=== PATIENT | female | born 1975 | race Caucasian/White ===

== ENCOUNTER 2017-04-21 08:00 | Outpatient (CLI) | payer OTHER ==
[2017-04-21 16:45] LABS: BASOPHILS # (AUTO) 0.1 10^3/uL (0.0-0.1); BASOPHILS % (AUTO) 0.5 %; EOSINOPHILS # (AUTO) 0.2 10^3/uL (0.0-0.7); EOSINOPHILS % (AUTO) 1.7 %; HCT - HEMATOCRIT 38.4 % (37.0-47.0); HGB - HEMOGLOBIN 12.6 g/dL (12.0-16.0); LYMPHOCYTES # (AUTO) 3.1 10^3/uL (1.5-3.5); LYMPHOCYTES % (AUTO) 21.2 %; MEAN CORPUSCULAR HEMOGLOBIN 26.6 pg (27.0-31.0); MEAN CORPUSCULAR HGB CONC 32.9 g/dL (32.0-36.0); MEAN PLATELET VOLUME 7.9 fL (7.9-10.8); MONOCYTES # (AUTO) 1.1 10^3/uL (0.0-1.0); MONOCYTES % (AUTO) 7.3 %; NEUTROPHILS # (AUTO) 10.3 10^3/uL (1.5-6.6); NEUTROPHILS % (AUTO) 69.3 %; NUCLEATED RED BLOOD CELLS AUTO 0.1 /100WBC; RED BLOOD COUNT 4.74 10^6/uL (4.20-5.40); RED CELL DISTRIBUTION WIDTH 15.3 % (12.0-15.0); UNCORRECTED WHITE BLOOD COUNT 14.8 x10^3/uL; WHITE BLOOD COUNT 14.8 x10^3/uL (4.8-10.8)
[2017-04-21 16:52] LABS: CALCIUM 9.2 mg/dL (8.5-10.3); CREATININE 0.8 mg/dL (0.4-1.0); POTASSIUM 3.5 mmol/L (3.5-5.0)
== END 2017-04-21 08:01 | disposition home or self-care (01) ==
LOC: LAB.R 08:00
PROVIDERS: ATTEND Nurse Practitioner Primary Care
DX: R07.81 Pleurodynia (principal); R05 Cough
CPT/HCPCS: 80048; 85025

== ENCOUNTER 2017-04-21 16:35 | Outpatient (CLI) | payer OTHER ==
--- NOTE | 2017-04-21 17:15 | XRAY Preliminary Report ---
Exam: XR CHEST 2 VIEW PA/LAT IMPRESSION: Left basilar atelectasis versus infiltrate. [facility] SITE ID: [id number]
--- NOTE | 2017-04-21 17:17 | XRAY Report ---
EXAM: CHEST RADIOGRAPHY EXAM DATE: 04/21/2017 05:03 PM. CLINICAL HISTORY: PLEURITIC CHEST Pain, cough. COMPARISON: None. TECHNIQUE: 2 views. FINDINGS: Lungs/Pleura: Atelectasis versus infiltrate in left posterior base. No consolidation, effusion, or pn eumothorax. Mediastinum: Heart and mediastinal contours are unremarkable. Upper lobe vessels not distended. Other: None. IMPRESSION: Left basilar atelectasis versus infiltrate. [facility] Referring Provider Line: [phone] SITE ID: [id number]
== END 2017-04-21 16:36 | disposition home or self-care (01) ==
LOC: DI 16:35
PROVIDERS: ATTEND Nurse Practitioner Primary Care
DX: R91.8 Other nonspecific abnormal finding of lung field (principal)
CPT/HCPCS: 71020; 80048; 85025

== ENCOUNTER 2019-07-05 11:41 | Emergency (ER) | payer BC, OTHER ==
[2019-07-05 11:50] VITALS: BP 136/81
--- NOTE | 2019-07-05 12:39 | ED Physician Documentation ---
PD HPI SKIN - Stated complaint Stated Complaint: SORE ON BUTTOCK - Chief complaint Chief Complaint: Wound - History obtained from History obtained from: Patient - History of Present Illness Timing - onset: How many days ago (4-5) Timing - duration: Days (4-5 days of redness and soreness upper posterior thigh. Was Rx Bactrim BID and had been on it for 2 days without improvement. Feeling worsening swelling and pain locally, though surrounding redness is improved some.) Timing - details: Gradual onset, Still present Location: RLE (upper posterior thigh just below buttock.) Quality / character: Painful, Discolored (red), Swelling. No: Draining Improved by: No: Antibiotics (bactrim for 2 days without improvement) Associated symptoms: No: Fever, Myalgias, N/V/D Similar symptoms before: Has not had sx before Review of Systems Constitutional: denies: Fever, Chills Throat: denies: Sore throat Respiratory: denies: Cough GI: denies: Nausea, Vomiting PD PAST MEDICAL HISTORY - Past Medical History Past Medical History: No - Past Surgical History Past Surgical History: Yes /[employer]: section HEENT: Tonsil/Adenoidectomy - Present Medications Home Medications: Ambulatory Orders Medication Instructions Recorded Confirmed Chlorhexidine Gluconate [Hibiclens] 15 ml TP DAILY #236 ml 07/05/19 Mupirocin 1 applic TP TID #15 g 07/05/19 - Allergies Allergies/Adverse Reactions: Allergies Allergy/AdvReac Type Severity Reaction Status Date / Time No Known Drug Allergies Allergy Verified 07/05/19 11:50 - Social History Does the pt smoke?: No Smoking Status: Former smoker Does the pt drink ETOH?: Yes ETOH Use: Wine Does the pt have substance abuse?: No - Immunizations Immunizations are current?: Yes - POLST Patient has POLST: No PD ED PE NORMAL - Vitals Vital signs reviewed: Yes - General General: Alert and oriented X 3, No acute distress, Well developed/nourished - Derm Derm: Normal color, Warm and dry - Extremities Extremities: Other (right upper posteromedial thigh with localized area of fluctuance/redness/swelling/tender. Bedside U/S confirmed fluid about 2 cm diamater.) - Neuro Neuro: Alert and oriented X 3, No motor deficit, No sensory deficit, Normal speech Results - Vitals Vitals: Vital Signs - 24 hr 07/05/19 11:46 Temperature 37.3 C Heart Rate 85 Respiratory 17 Rate Blood Pressure 136/81 H O2 Saturation 100 Oxygen O2 Source Room air - Labs Labs: Microbiology 07/05/19 13:54 Wound Culture - Preliminary Thigh - Right Procedures - Abscess I&D (location) right upper medial/posterior thigh Preparation: Confirmed with ultrasound, Lidocaine 1%, With epi Incision: Incised with scalpel, Purulent drainage, Irrigated, Culture obtained. 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 ), d/w patient Departure - Departure Disposition: 01 Home, Self Care Clinical Impression: Abscess of right thigh Condition: Stable Record reviewed to determine appropriate education?: Yes Instructions: ED Abscess IandD Prescriptions: Chlorhexidine Gluconate [Hibiclens] 15 ml TP DAILY #236 ml Mupirocin 1 applic TP TID #15 g Comments: Continue current antibiotics. Warm moist soaks or compresses to the infection area to promote drainage. Wet to dry or dry dressing for the first couple of days and then he can start with ointment and bandage once its looking better. Use mupirocin antibiotic ointment a small amount to the nailbeds and nostrils twice daily. Start using at the infection site after couple of days as well once the drainage has stopped. Chlorhexidine antiseptic whole-body wash when you are taking your shower daily for the next week and then once or twice weekly after that. Recheck if not improving well over the next few days. Off work for the next 2 days to help reduce the chance of spread of infection. Forms: Activity restrictions Discharge Date/Time: 07/05/19 14:10
== END 2019-07-05 14:10 | disposition home or self-care (01) ==
LOC: ED 11:41
DX: L02.415 Cutaneous abscess of right lower limb (principal); Z87.891 Personal history of nicotine dependence
CPT/HCPCS: 10060; 87070; 87205

== ENCOUNTER 2020-03-14 09:20 | Outpatient (CLI) | payer BC ==
[2020-03-14 09:28] LABS: BASOPHILS # (AUTO) 0.1 10^3/uL (0.0-0.1); BASOPHILS % (AUTO) 0.7 %; EOSINOPHILS # (AUTO) 0.2 10^3/uL (0.0-0.7); EOSINOPHILS % (AUTO) 2.8 %; HGB - HEMOGLOBIN 10.4 g/dL (12.0-16.0); LYMPHOCYTES # (AUTO) 2.6 10^3/uL (1.5-3.5); LYMPHOCYTES % (AUTO) 32.3 %; MEAN CORPUSCULAR HEMOGLOBIN 22.7 pg (27.0-31.0); MEAN CORPUSCULAR HGB CONC 30.3 g/dL (32.0-36.0); MEAN CORPUSCULAR VOLUME 74.9 fL (81.0-99.0); MEAN PLATELET VOLUME 9.2 fL (7.9-10.8); MONOCYTES # (AUTO) 1.1 10^3/uL (0.0-1.0); NEUTROPHILS # (AUTO) 4.1 10^3/uL (1.5-6.6); NEUTROPHILS % (AUTO) 50.8 %; PLT - PLATELET COUNT 369 10^3/uL (130-450); RED BLOOD COUNT 4.58 10^6/uL (4.20-5.40); RED CELL DISTRIBUTION WIDTH 17.3 % (12.0-15.0); WHITE BLOOD COUNT 8.1 x10^3/uL (4.8-10.8)
[2020-03-14 09:46] LABS: ALBUMIN 4.3 g/dL (3.2-5.5); ALKALINE PHOSPHATASE 78 IU/L (42-121); ALT ALANINE AMINOTRANSFERASE 179 IU/L (10-60); AST ASPARTATE AMINOTRANSFERASE 125 IU/L (10-42); BILIRUBIN,TOTAL 0.4 mg/dL (0.2-1.0); BUN - BLOOD UREA NITROGEN 9 mg/dL (6-20); CALCIUM 9.1 mg/dL (8.5-10.3); CARBON DIOXIDE - CO2 25 mmol/L (21-32); CHLORIDE 102 mmol/L (101-111); CHOL/HDL RATIO 3.3 (<4.4); CHOLESTEROL 165 mg/dL; CREATININE 0.7 mg/dL (0.4-1.0); GLUCOSE 103 mg/dL (70-100); HDL CHOLESTEROL 50 mg/dL; LDL CHOLESTEROL,CALCULATED 92 mg/dL; LDL/HDL RATIO 1.8 (<4.4); SODIUM 134 mmol/L (135-145); TOTAL PROTEIN 8.5 g/dL (6.7-8.2); VLDL CHOLESTEROL 23 mg/dL
[2020-03-14 09:59] LABS: THYROID STIMULATING HORMONE 2.27 uIU/mL (0.34-5.60)
[2020-03-14 10:00] LABS: FREE T3 3.52 pg/mL (2.5-3.9)
[2020-03-14 10:01] LABS: FREE T4 (FREE THYROXINE) 0.81 ng/dL (0.58-1.64)
== END 2020-03-14 09:21 | disposition home or self-care (01) ==
LOC: LAB 09:20
PROVIDERS: ATTEND Nurse Practitioner
DX: R53.83 Other fatigue (principal); Z13.228 Encounter for screening for other metabolic disorders; Z13.220 Encounter for screening for lipoid disorders; E06.3 Autoimmune thyroiditis
CPT/HCPCS: 36415; 80053; 80061; 83721; 84439; 84443; 84481; 85025

== ENCOUNTER 2020-03-19 12:32 | Outpatient (CLI) | payer BC ==
[2020-03-19 12:45] LABS: BASOPHILS # (AUTO) 0.1 10^3/uL (0.0-0.1); BASOPHILS % (AUTO) 0.7 %; EOSINOPHILS # (AUTO) 0.2 10^3/uL (0.0-0.7); HGB - HEMOGLOBIN 10.6 g/dL (12.0-16.0); LYMPHOCYTES % (AUTO) 35.2 %; MEAN CORPUSCULAR HEMOGLOBIN 22.4 pg (27.0-31.0); MEAN CORPUSCULAR VOLUME 74.5 fL (81.0-99.0); MEAN PLATELET VOLUME 9.3 fL (7.9-10.8); MONOCYTES # (AUTO) 0.7 10^3/uL (0.0-1.0); MONOCYTES % (AUTO) 7.8 %; NEUTROPHILS # (AUTO) 4.5 10^3/uL (1.5-6.6); NEUTROPHILS % (AUTO) 53.9 %; PLT - PLATELET COUNT 341 10^3/uL (130-450); RED BLOOD COUNT 4.74 10^6/uL (4.20-5.40); WHITE BLOOD COUNT 8.4 x10^3/uL (4.8-10.8)
[2020-03-19 13:05] LABS: % IRON SATURATION 7 % (20-50); IRON 36 ug/dL (28-170); TOTAL IRON BINDING CAPACITY 526 ug/dL (250-450); TRANSFERRIN 376 mg/dL (192-382)
[2020-03-20 12:03] LABS: HEPATITIS C ANTIBODY NON-REACTIVE (NON-REACTIVE)
[2020-03-20 13:02] LABS: HIV AG/AB 4TH GEN NON-REACTIVE (NON-REACTIVE)
== END 2020-03-19 12:33 | disposition home or self-care (01) ==
LOC: LAB 12:32
PROVIDERS: ATTEND Nurse Practitioner
DX: D64.9 Anemia, unspecified (principal); R74.8 Abnormal levels of other serum enzymes; R53.83 Other fatigue
CPT/HCPCS: 36415; 82728; 83540; 84466; 85025; 86317; 86704; 86709; 86803; 87389

== ENCOUNTER 2020-03-25 12:51 | Outpatient (CLI) | payer BC | END 2020-03-25 12:52 | disposition home or self-care (01) | LOC: LAB 12:51 | PROVIDERS: ATTEND Surgery | DX: R53.83 Other fatigue (principal); D64.9 Anemia, unspecified; R74.8 Abnormal levels of other serum enzymes; Z20.828 Contact with and (suspected) exposure to other viral communicable diseases | CPT/HCPCS: 36415; 86308; 86769 ==

== ENCOUNTER 2020-04-08 08:00 | Outpatient (CLI) | payer BC ==
[2020-04-08 11:49] LABS: H. PYLORIS ANTIGEN STL NEGATIVE (Negative)
== END 2020-04-08 23:59 | disposition home or self-care (01) ==
LOC: LAB.R 08:00
PROVIDERS: ATTEND Surgery
DX: D64.9 Anemia, unspecified (principal); R74.8 Abnormal levels of other serum enzymes; R53.83 Other fatigue
CPT/HCPCS: 87338

== ENCOUNTER 2020-04-14 08:37 | Outpatient (CLI) | payer BC ==
--- NOTE | 2020-04-14 11:37 | Ultrasound Report ---
PROCEDURE: Abdomen Limited INDICATIONS: ELEVATED LIVER ENZYMES TECHNIQUE: Real-time scanning was performed of the abdominal and retroperitoneal organs, with image documentatio n. COMPARISON: None. FINDINGS: Liver: The liver measures 15.9 cm in length and demonstrates increased echogenicity. Gallbladder: The gallbladder wall measures 3 mm in diameter. A 6 mm diameter polyp is present along t he gallbladder wall. No pericholecystic fluid or sonographic Ahn sign. Biliary ducts: Intrahepatic bile ducts are non-dilated. Extrahepatic bile duct caliber measures 2 m m. Normal is 6-7 mm or less in diameter, or 10 mm or less post-cholecystectomy. Pancreas: Visualized portions of the pancreas are sonographically normal. The tail the pancreas is only partially characterized. Kidneys: Kidneys are normal in size and echotexture. Right kidney measures 12.0 cm long. No hydron ephrosis or nephrolithiasis. No solid masses. IVC: Intrahepatic inferior vena cava is patent. Miscellaneous: No free abdominal fluid. IMPRESSION: 1. 6 mm gallbladder polyp. Annual sonographic surveillance recommended as there is increased risk of malignant transformation. No cholelithiasis or findings to suggest choledocholithiasis or acute dwight cystitis. 2. Hepatic steatosis. Reviewed by: Maida Gagnon MD on 04/14/2020 11:35 AM PDT Approved by: Maida Gagnon MD on 04/14/2020 11:35 AM PDT Station ID: [id number]
== END 2020-04-14 08:38 | disposition home or self-care (01) ==
LOC: DI 08:37
PROVIDERS: ATTEND Nurse Practitioner
DX: K82.4 Cholesterolosis of gallbladder (principal); K76.0 Fatty (change of) liver, not elsewhere classified
CPT/HCPCS: 76705

== ENCOUNTER 2020-05-02 13:03 | Outpatient (CLI) | payer BC ==
--- NOTE | 2020-05-07 14:20 | Mammography Report ---
BILATERAL DIGITAL SCREENING MAMMOGRAM 3D/2D: 05/02/2020 CLINICAL: Routine screening. Baseline exam. No prior exams were available for comparison. The tissue of both breasts is heterogeneously dense. T his may lower the sensitivity of mammography. No significant masses, calcifications, or other findings are seen in either breast. IMPRESSION: NEGATIVE There is no mammographic evidence of malignancy. A 1 year screening mammogram is recommended. This exam was interpreted at Station ID: [id number]. NOTE: For mammograms, a report in lay terms will be sent to the patient. Approximately 15% of breast malignancies will not be visualized mammographically. In the management of a palpable breast mass, a negative mammogram must not discourage biopsy of a clinically suspicious lesion. Electronically Signed By: Sivakumar Montalvo M.D. [email or web address]:05/03/2020 17:04:55 ACR BI-RADS Category 1: Negative 3341F PARENCHYMAL PATTERN: (D) - The breast(s) demonstrate(s) heterogeneously dense fibroglandular sumanth maurice. BI-RADS CATEGORY: (1) - 1 RECOMMENDATION: (ANNUAL) - Recommend routine annual screening mammography. [id number] 1 year screening LATERALITY: (B)
== END 2020-05-02 13:04 | disposition home or self-care (01) ==
LOC: DI 13:03
PROVIDERS: ATTEND Nurse Practitioner
DX: Z12.31 Encounter for screening mammogram for malignant neoplasm of breast (principal)
CPT/HCPCS: 77063; 77067

== ENCOUNTER 2020-05-09 15:01 | Outpatient (CLI) | payer BC ==
[2020-05-09 15:16] LABS: BASOPHILS # (AUTO) 0.1 10^3/uL (0.0-0.1); BASOPHILS % (AUTO) 0.7 %; EOSINOPHILS # (AUTO) 0.3 10^3/uL (0.0-0.7); HGB - HEMOGLOBIN 10.8 g/dL (12.0-16.0); LYMPHOCYTES # (AUTO) 3.3 10^3/uL (1.5-3.5); LYMPHOCYTES % (AUTO) 34.5 %; MEAN CORPUSCULAR HEMOGLOBIN 23.1 pg (27.0-31.0); MEAN CORPUSCULAR HGB CONC 30.2 g/dL (32.0-36.0); MEAN CORPUSCULAR VOLUME 76.5 fL (81.0-99.0); MEAN PLATELET VOLUME 9.1 fL (7.9-10.8); MONOCYTES # (AUTO) 1.2 10^3/uL (0.0-1.0); MONOCYTES % (AUTO) 11.9 %; NEUTROPHILS # (AUTO) 4.8 10^3/uL (1.5-6.6); NEUTROPHILS % (AUTO) 49.6 %; PLT - PLATELET COUNT 346 10^3/uL (130-450); RED BLOOD COUNT 4.68 10^6/uL (4.20-5.40); RED CELL DISTRIBUTION WIDTH 18.9 % (12.0-15.0); WHITE BLOOD COUNT 9.7 x10^3/uL (4.8-10.8)
[2020-05-09 15:41] LABS: ALBUMIN 4.4 g/dL (3.2-5.5); BILIRUBIN,TOTAL 0.6 mg/dL (0.2-1.0); CALCIUM 9.2 mg/dL (8.5-10.3); CREATININE 0.6 mg/dL (0.4-1.0); TOTAL PROTEIN 8.9 g/dL (6.7-8.2)
== END 2020-05-09 15:02 | disposition home or self-care (01) ==
LOC: LAB 15:01
PROVIDERS: ATTEND Surgery
DX: D64.9 Anemia, unspecified (principal); R74.8 Abnormal levels of other serum enzymes
CPT/HCPCS: 36415; 80048; 82040; 82247; 82728; 83540; 84075; 84155; 84460; 84466; 85025

== ENCOUNTER 2020-08-15 14:32 | Outpatient (CLI) | payer BC ==
[2020-08-15 15:03] LABS: BASOPHILS # (AUTO) 0.1 10^3/uL (0.0-0.1); BASOPHILS % (AUTO) 1.1 %; EOSINOPHILS # (AUTO) 0.3 10^3/uL (0.0-0.7); EOSINOPHILS % (AUTO) 4.3 %; HGB - HEMOGLOBIN 11.9 g/dL (12.0-16.0); LYMPHOCYTES # (AUTO) 2.5 10^3/uL (1.5-3.5); LYMPHOCYTES % (AUTO) 33.3 %; MEAN CORPUSCULAR HEMOGLOBIN 26.9 pg (27.0-31.0); MEAN CORPUSCULAR HGB CONC 31.6 g/dL (32.0-36.0); MEAN CORPUSCULAR VOLUME 85.3 fL (81.0-99.0); MEAN PLATELET VOLUME 9.3 fL (7.9-10.8); MONOCYTES # (AUTO) 0.8 10^3/uL (0.0-1.0); MONOCYTES % (AUTO) 11.3 %; NEUTROPHILS # (AUTO) 3.7 10^3/uL (1.5-6.6); NEUTROPHILS % (AUTO) 49.7 %; PLT - PLATELET COUNT 263 10^3/uL (130-450); RED BLOOD COUNT 4.42 10^6/uL (4.20-5.40); RED CELL DISTRIBUTION WIDTH 16.5 % (12.0-15.0); WHITE BLOOD COUNT 7.4 x10^3/uL (4.8-10.8)
[2020-08-15 15:21] LABS: ALBUMIN 3.9 g/dL (3.2-5.5); BILIRUBIN,TOTAL 0.3 mg/dL (0.2-1.0); CALCIUM 8.7 mg/dL (8.5-10.3); CREATININE 0.5 mg/dL (0.4-1.0); TOTAL PROTEIN 7.9 g/dL (6.7-8.2)
== END 2020-08-15 14:33 | disposition home or self-care (01) ==
LOC: LAB 14:32
PROVIDERS: ATTEND Surgery
DX: R53.83 Other fatigue (principal); R74.8 Abnormal levels of other serum enzymes; D64.9 Anemia, unspecified
CPT/HCPCS: 36415; 80053; 82306; 82607; 83540; 85025

== ENCOUNTER 2020-08-20 13:33 | Outpatient (CLI) | payer BC ==
--- NOTE | 2020-08-20 17:19 | Ultrasound Report ---
PROCEDURE: Pelvic w/Transvaginal INDICATIONS: INTERMENSRUAL BLEEDING TECHNIQUE: Real-time scanning was performed of the pelvic organs, with image documentation. Additional endovagi nal scanning was necessary due to incomplete visualization of the adnexal and endometrial structures by transabdominal scanning. COMPARISON: None. FINDINGS: No pathologic free abdominal or pelvic fluid. Uterus: Uterus is enlarged in size at 11.5 x 5.3 x 6.9 cm. The endometrium measures 19.0 mm in comb ined thickness. Echogenic central endometrial focus is present measuring up to 1.3 cm. There are 2 i ntramural fibroids, largest measuring 2.3 x 2.6 x 2.3 cm. Ovaries: Right ovary measures 4.3 x 3.3 x 2.6 cm, with volume estimated at 19 cc. Regressing right p hysiologic cyst measuring 1.8 x 1.5 x 1.5 cm. Thick wall, mildly complex hemorrhagic right ovarian cy st present measuring 2.4 x 1.6 x 2.1 cm. The left ovary not visualized. IMPRESSION: 1. Thickened endometrial complex with 1.3 cm echogenic focus positioned centrally within the endometr ial complex. Findings may represent residual blood products; however endometrial polyp or other endom etrial neoplastic processes cannot be excluded. Recommend short-term follow-up pelvic ultrasound in 6 -12 weeks to assess for interval change/resolution. 2. Right hemorrhagic ovarian cyst which also can be reassessed on follow-up examination. 3. Intramural fibroids, largest measuring up to 2.6 cm. Reviewed by: RAY Swenson on 08/20/2020 5:18 PM PST Approved by: Irina Lanier MD on 08/20/2020 5:18 PM PST Station ID: [id number]
== END 2020-08-20 13:34 | disposition home or self-care (01) ==
LOC: DI 13:33
PROVIDERS: ATTEND Obstetrics & Gynecology
DX: N92.1 Excessive and frequent menstruation with irregular cycle (principal); R93.89 Abnormal findings on diagnostic imaging of other specified body structures; N83.201 Unspecified ovarian cyst, right side; D25.1 Intramural leiomyoma of uterus

== ENCOUNTER 2020-09-03 11:53 | Outpatient (CLI) | payer BC ==
--- NOTE | 2020-09-10 17:09 | Ultrasound Report ---
PROCEDURE: Head or Neck Soft Tissue INDICATIONS: HASHIMOTOS THYROIDITIS TECHNIQUE: Real time scanning was performed of the neck region of interest, with image documentation . COMPARISON: None. FINDINGS: No soft tissue neck abnormality seen bilaterally IMPRESSION: PROCEDURE: Head or Neck Soft Tissue INDICATIONS: HASHIMOTOS THYROIDITIS TECHNIQUE: Real-time scanning was performed of the thyroid gland, with image documentation. COMPARISON: None available at time of interpretation. FINDINGS: Right: Thyroid lobe measures 5.8 x 1.8 x 2.0 cm, and is slightly heterogeneous in echotexture. Left: Thyroid lobe measures 6.9 x 1.9 x 2.2 cm, and is diffusely heterogeneous in echotexture. Isthmus: Size mm thick. Nodule number: One Location: ] Size: 1.4 x 1 0.0, 1.1 cm. Composition: Predominant solid Echogenicity: Hyperechoic Shape: wider than tall. Margins: No Echogenic foci: None Total points: 3 ACR TI-RADS category: Mildly suspicious Nodule number: Two Location: Left inferior Size: 1.1 x 1 0.0, 0.8 cm. Composition: Solid Echogenicity: Hyperechoic Shape: wider than tall. Margins: Smooth Echogenic foci: None Total points: 3 ACR TI-RADS category: Mildly suspicious Nodule number: Three Location: Left inferior Size: 3.8 x 2.7 x 2.7 cm. Composition: Predominately solid Echogenicity: Echogenic Shape: wider than tall. Margins: Smooth Echogenic foci: None Total points: 3 ACR TI-RADS category: Mildly suspicious Nodule number: Four Location: Left inferior Size: 1.1 x 0.9 x 0.8 cm. Composition: Predominately solid Echogenicity: Hyperechoic Shape: wider than tall. Margins: Smooth Echogenic foci: None Total points: 3 ACR TI-RADS category: Mildly suspicious IMPRESSION: Bilateral mildly suspicious thyroid nodules. ACR TI-RADS definitions and recommendations: TI-RADS 1 (benign): 0 points. FNA not needed. TI-RADS 2 (not suspicious): 2 points. FNA not needed. TI-RADS 3 (mildly suspicious): 3 points. ? FNA if 2.5 cm or larger, follow up if 1.5 cm or larger (at 1, 3, and 5 years). TI-RADS 4 (moderately suspicious): 4-6 points. ? FNA if 1.5 cm or larger, follow up if 1 cm or larger (at 1, 2, 3, and 5 years). TI-RADS 5 (highly suspicious): 7 points or more. ? FNA if 1 cm or larger, follow up if 0.5 cm or larger (every year for 5 years). Reviewed by: RAY Swenson on 09/10/2020 5:07 PM PST Approved by: Irina Lanier MD on 09/10/2020 5:07 PM PST Station ID: [id number]
== END 2020-09-03 11:54 | disposition home or self-care (01) ==
LOC: DI 11:53
PROVIDERS: ATTEND Surgery
DX: E04.2 Nontoxic multinodular goiter (principal)

== ENCOUNTER 2020-09-23 10:09 | Outpatient (CLI) | payer BC | END 2020-09-23 10:10 | disposition home or self-care (01) | LOC: LAB 10:09 | PROVIDERS: ATTEND Obstetrics & Gynecology | DX: Z01.812 Encounter for preprocedural laboratory examination (principal); R93.89 Abnormal findings on diagnostic imaging of other specified body structures; N84.1 Polyp of cervix uteri; N92.3 Ovulation bleeding; Z20.822 Contact with and (suspected) exposure to COVID-19 | CPT/HCPCS: 36415 ==

== ENCOUNTER 2020-09-25 08:00 | Outpatient (CLI) | payer BC | END 2020-09-25 23:59 | disposition home or self-care (01) | LOC: LAB.R 08:00 | PROVIDERS: ATTEND Surgery | DX: E06.3 Autoimmune thyroiditis (principal); R53.83 Other fatigue | CPT/HCPCS: 36415; 82306 ==

== ENCOUNTER 2020-09-25 08:11 | Day surgery (SDC) | payer BC ==
--- NOTE | 2020-09-25 06:31 | HISTORY & PHYSICAL EXAMINATION ---
HPI - History of Present Illness HPI Comment/Other: CC: thickened endometrium; polyp, intermenstrual bleeding HPI: Pt is here today for a preop consult for a hysteroscopy and polypectomy procedure ...................................................................LIANG Simeon September 19, 2020 2:45 PM Patient is a 45-year-old G2, P1 here for preop assessment for hysterocopy D&C. She was last seen in clinic on 08/01/20 for annual wellness exam. At that time, she reported that in May or June she started having bleeding between periods Had not had any menstrual irregularities prior to this time other than maybe some spotting a couple of times in the summer. Menses are heavy and also accompanied by 2 to 3 days of spotting once menses are complete. Noted to have iron deficiency anemia and has taken iron supplementation in the past. She was founf to have a large cervical polyp on exam. It was removed and was found to be benign. US on 08/20/20 showed the following: Uterus is enlarged in size at 11.5 x 5.3 x 6.9 cm. The endometrium measures 19.0 mm in combined thickness. Echogenic central endonnetrial focus is present measuring up to 1.3 cm. There are 2 intramural fibroids, largest measuring 2.3 x 2.6 x 2.3 cm. Ovaries: Right ovary measures 4.3 x 3.3 x 2.6 cm, with volume estimated at 19 cc. Regressing right physiologic cyst measuring 1.8 x 1.5 x 1.5 cm. Thick wall, mildly complex hemorrhagic right ovarian cyst present measuring 2.4 x 1.6 x 2.1 cm. The left ovary not visualized. IMPRESSION: 1. Thickened endometrial complex with 1.3 cm echogenic focus positioned centrally within the endonnetrial complex. Reviewed results and are planning tomove forward with hysteroscopy D&C with polypectomy. No changes in health hx since time of prior exam. Allergies: No Known Allergies Medications: VITAMIN D-3 TABLET (CHOLECALCIFEROL TABS) qd LEXAPRO 20 MG ORAL TABLET (ESCITALOPRAM OXALATE) Take one tablet by mouth once daily; Route: ORAL FERROUS SULFATE 325 (65 FE) MG ORAL TABLET (FERROUS SULFATE) Takeo one tablet by mouth everyday; Route: ORAL PROAIR RESPICLICK 108 (90 BASE) MCG/ACT INH AEPB (ALBUTEROL SULFATE) Take one puff by mouth as needed; Route: INHALATION MULTI-VITAMIN DAILY ORAL TABLET (MULTIPLE VITAMIN) 1 daily; Route: ORAL Problems: Preoperative examination (ICD-V72.84) (MCL54-B42.818) Preventive health care (ICD-V70.0) (VKG81-B29.00) Cervical polyp (ICD-622.7) (KUG62-J76.1) Intermenstrual bleeding - irregular (ICD-626.6) (CKM69-G31.1) Screening for cervical cancer (ICD-V76.2) (ZJB32-K66.4) GERD (ICD-530.81) (SQL09-D48.9) Anemia (ICD-285.9) (SOM31-N99.9) Elevated liver enzymes (ICD-790.6) (TQN70-H74.8) NEOPLASM, SKIN, UNCERTAIN BEHAVIOR (ICD-238.2) (BBV86-C04.5) FATIGUE (ICD-780.79) (IKA33-Y06.83) Screening for metabolic disorder (ICD-V77.99) (CXH51-V45.228) Screening for lipid disorder (ICD-V77.91) (IIX97-B49.220) Screening for breast cancer (ICD-V76.10) (RUF47-S58.39) Autoimmune thyroiditis (ICD-245.2) (IOS29-O83.3) Hair loss (ICD-704.00) (GCN94-I70.9) Community acquired pneumonia (ICD-486) (MGU81-H67.9) Pleuritic chest pain (ICD-786.52) (SQT58-S39.81) 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) (BBF37-E10.3) Cough (ICD-786.2) (QSU75-U64) Risk Factors-CCC with prev: Smoked Tobacco Use: Former smoker Pack-Years: 52 Years Smoked: 17 Year Quit: 2013 Years Since Last Quit: 8 Smokeless Tobacco Use: Never Passive Smoke Exposure: yes Alcohol Use: yes Type: wine/hard cider Drinks per day: <1 Drug Use: no Vital Signs: Patient Profile: 45 Years Old Female Height: 66 inches (167.64 cm) Weight: 175 pounds BMI: 28.35 BP sittin / 79 Cuff size: regular Vitals Entered By: LIANG Salcido (September 19, 2020 2:45 PM) Meds Reviewed: Done Allergies Reviewed: Done No known allergies: T Past Medical History: Depression Pneumonia 2017 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 Physical Constitutional: GEN: NAD HEAD: NCAT EYES: No scleral icterus or conjunctival injection NECK: No cervical LAD or TM CV: RRR RESP: CTAB, normal effort ABD: S&NT/ND PSYCH: appropriate affect NEURO: alert and oriented, normal gait and coordination EXT: WWP VULVA: Normal external female genitalia. Normal Bartholin's, Moodus's, urethra meatus and anus. No inguinal lymphadenopathy. VAGINA: Speculum exam reveals normal vaginal mucosa, pink, moist, rugated. Physiologic discharge and no lesions or abnormal discharge. Cervix: Nulliparous with large friable polyp at external os, large blood flow with manipulation (removed). Uterus: Mobile, NT, normal size and contour ADNEXA: no adnexal masses or tenderness Impression & Recommendations: Problem # 1: Preoperative examination (ICD-V72.84) (APG07-S95.818) Orders: PRE OP -[id number] (CPT-24520) Reviewed risks/benefits/alternatives to hysteroscopy/polpectomy Risks include, but are not limited to, bleeding, infection, damage to neatby tissue and organs. On average, expected EBL is minimal. In the event of an unanticipated blood loss, patient is willing to undergo transfusion. Risks of blood transfusion include infection as well as transfusion reaction Risk of HIV 1/2million nationwide Risk of Hepatitis 1/1 million Risks of transfusion reaction and mgt reviewed Infection risk low given that no incisions kailash be made and we will be using physiologic orifices. Will provide IV abx in the event of uterine perforation. Damage to nearby tissue and organs was reviewed with emphasis on uterine perforation and management, which can include surgical intervention based on bleeding risk. Reviewed management of complications and efforts to avoid such outcomes but rev iewed that they may occur despite our best efforts. Patient agreed to the aforementioned procedure and written informed consent was obtained. Medications Added to Medication List This Visit: 1) Vitamin D-3 Tablet (Cholecalciferol tabs) .... 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 HEENT: positive: Tonsil/Adenoidectomy Social & Family Hx - Social History Does the pt smoke?: No Smoking Status: Former smoker Does the pt drink ETOH?: Yes Does the pt have substance abuse?: No - POLST Patient has POLST: No Meds/Allgy - Home Medications Home Medications: Ambulatory Orders Medication Instructions Recorded Confirmed Cholecalciferol [Vitamin D3] 10,000 unit PO DAILY 09/23/20 09/23/20 Escitalopram Oxalate [Lexapro] 20 mg PO DAILY 09/23/20 09/23/20 Ferrous Sulfate 325 mg PO DAILY 09/23/20 09/23/20 - Allergies Allergies/Adverse Reactions: Allergies Allergy/AdvReac Type Severity Reaction Status Date / Time No Known Drug Allergies Allergy Verified 07/05/19 11:50
[~2020-09-25 08:11] MED LIST: ACETAMINOPHEN 1,000 MG/100 ML 100 ML IV ONE; CELECOXIB 100 MG CAPSULE PO ONE; GABAPENTIN 400 MG CAPSULE ONE
[2020-09-25] MEDS ORDERED: LACTATED RINGERS 1,000 ML IV ONE ×2 (08:33→11:00)
[2020-09-25 08:40] LABS: HCG UR QUAL NEGATIVE
--- NOTE | 2020-09-25 08:41 | ANESTHESIA ---
Pre-Anesthesia VS, & Labs - Diagnosis thickened endometrium, polyp, intermenstrual bleeding - Procedure myosure hysteroscopy, Polypectomy Vital Signs: Temp Pulse Resp BP Pulse Ox 36.8 C 83 16 118/68 98 09/25/20 08:25 09/25/20 08:25 09/25/20 08:25 09/25/20 08:25 09/25/20 08:25 Height: 5 ft 6 in Weight (kg): 83 kg Body Mass Index: 29.5 BMI Classification: Overweight - NPO >8 hours - Is Patient ?: No - Lab Results Lab results reviewed: Yes Home Medications and Allergies Home Medications: Ambulatory Orders Cholecalciferol [Vitamin D3] 10,000 unit PO DAILY 09/23/20 Escitalopram Oxalate [Lexapro] 20 mg PO DAILY 09/23/20 Ferrous Sulfate 325 mg PO DAILY 09/23/20 Cholecalciferol [Vitamin D3] 10,000 unit PO DAILY 09/23/20 Escitalopram Oxalate [Lexapro] 20 mg PO DAILY 09/23/20 Ferrous Sulfate 325 mg PO DAILY 09/23/20 Allergies/Adverse Reactions: Allergies Allergy/AdvReac Type Severity Reaction Status Date / Time No Known Drug Allergies Allergy Verified 07/05/19 11:50 Anes History & Medical History - Anesthetic History Anesthesia Complications: reports: No previous complications Family history of Anesthesia Complications: Denies Family history of Malignant Hyperthermia: Denies - Medical History Cardiovascular: reports: None Pulmonary: reports: None Gastrointestinal: reports: GERD (mild) Urinary: reports: None Musculoskeletal: reports: None Endocrine/Autoimmune: reports: None Skin: reports: None Smoking Status: Former smoker - Surgical History Eyes Ears Nose Throat (EENT): reports: Tonsil/Adenoidectomy Gynecologic: reports: section Exam General: Alert, Oriented x3, Cooperative, No acute distress Dental: WNL Mouth Openin Fingerbreadth Neck Mobility: Normal Mallampati classification: III Respiratory: Lungs clear, Normal breath sounds, No respiratory distress, No accessory muscle use Cardiovascular: Regular rate, Normal S1, Normal S2, No murmurs Plan Anesthesia Type: General Consent for Procedure(s) Verified and Reviewed: Yes Code Status: Attempt Resuscitation ASA classification: 2-Mild systemic disease Is this case an emergency?: No
[2020-09-25] MEDS ORDERED: HYDROmorphone 0.5 MG/0.5 ML SYRINGE IVP PRN (09:08)
[2020-09-25] MEDS ORDERED: ePHEDrine 50 MG/ML VIAL IVP PRN (09:08)
[2020-09-25] MEDS ORDERED: fentaNYL 100 MCG/2 ML VIAL IVP PRN (09:08)
[2020-09-25] MEDS ORDERED: ONDANSETRON 4 MG/2 ML VIAL IVP PRN (09:08)
[2020-09-25] MEDS ORDERED: NALOXONE 0.4 MG/ML VIAL IVP PRN (09:08)
[2020-09-25] MEDS ORDERED: METOCLOPRAMIDE 10 MG/2 ML VIAL IVP PRN (09:08)
[2020-09-25] MEDS ORDERED: MORPHINE 2 MG/ML CARPUJECT IVP PRN (09:08)
[2020-09-25] MEDS ORDERED: ATROPINE ABBOJECT 1 MG/10 ML SYRINGE IVP PRN (09:08)
[2020-09-25] MEDS ORDERED: SCOPOLAMINE PATCH TOP SCH (10:00)
[2020-09-25] MEDS ORDERED: LACTATED RINGERS 1,000 ML IV SCH (10:00)
--- NOTE | 2020-09-25 10:10 | OPERATIVE REPORT ---
Operative Report - General Procedure Date: 09/25/20 Planned Procedure: Hysteroscopy D&C with polypectomy Pre-Op Diagnosis: Menorrhagia, thickened endometrium Procedure Performed: Hysteroscopy D&C with polypectomy Post Op Diagnosis: same - Procedure Note Primary Surgeon: Alexa Colvin MD Anesthesia Provider: Perry Stokes CRNA Pathology: Uterine contents IV Fluids (mL): 500 Estimated Blood Loss (mL): 10 Drain/Tube Type: Jamie drain Indications: Patient is a 45-year-old G2, P1 here with heavy bleeding and intermenstrual bleeding. In May or June she started having bleeding between periods Had not had any menstrual irregularities prior to this time other than maybe some spotting a couple of times in the summer. Menses are heavy and also accompanied by 2 to 3 days of spotting once menses are complete. Noted to have iron deficiency anemia and has taken iron supplementation in the past. She was found to have a large cervical polyp on exam. It was removed and was found to be benign. US on 08/20/20 showed the following: Uterus is enlarged in size at 11.5 x 5.3 x 6.9 cm. The endometrium measures 19.0 mm in combined thickness. Echogenic central endonnetrial focus is present measuring up to 1.3 cm. There are 2 intramural fibroids, largest measuring 2.3 x 2.6 x 2.3 cm. Ovaries: Right ovary measures 4.3 x 3.3 x 2.6 cm, with volume estimated at 19 cc. Regressing right physiologic cyst measuring 1.8 x 1.5 x 1.5 cm. Thick wall, mildly complex hemorrhagic right ovarian cyst present measuring 2.4 x 1.6 x 2.1 cm. The left ovary not visualized. IMPRESSION: 1. Thickened endometrial complex with 1.3 cm echogenic focus positioned centrally within the endonnetrial complex. Patient opting for definitive surgical management with hysteroscopy D&C and possible polypectomy. Findings: Thickened endometrial lining with polypoid tissue. Bilateral tubal ostia. Complications: None - Other Other Information/Narrative: Risks benefits and alternatives to the procedure were reviewed. Consent was again confirmed. Patient was taken to the operating room where she underwent general anesthesia. She was positioned in dorsolithotomy position with legs resting in yellowfin stirrups. She was prepped and draped in the usual sterile fashion. Preoperative antibiotics were not indicated. Preoperative checklist was performed. Exam under anesthesia was performed. Speculum was placed in the vagina and the cervix was visualized. Single-tooth tenaculum was placed at the anterior cervical lip. Paracervical block was administered using a total of 30 cc of 2% lidocaine with epinephrine mixed with 0.25% bupivicaine was injected at the 4:00 and 8:00 positions lateral to the portio of the cervix. The cervical os was serially dilated with Hegar dilators to accommodate the caliber of the diagnostic hysteroscope. Uterus sounded to 9 cm. The hysteroscope was inserted and findings were noted as above. Hysteroscope was removed. Sharp curettage D&C was performed with sharp curettage to clear the thickened tissue and accumulated blood. The hysteroscopic morcellator was then inserted through the operative port. The intrauterine polyps were morcellated under direct visualization. Uterine cavity was smooth at close of the procedure. All instruments were removed from the uterus. Tenaculum was removed. Tenaculum sites were noted to be hemostatic. All instruments were removed from the vagina. Procedure was well-tolerated without complication. Fluid deficit: 435 cc NS
[2020-09-25] MEDS ORDERED: LIDOCAINE 2%-EPI 1:100000 20 ML MDV ONE (10:25)
[2020-09-25] MEDS ORDERED: fentaNYL 100 MCG/2 ML VIAL ONE (10:31)
[2020-09-25] MEDS ORDERED: MIDAZOLAM 2 MG/2 ML VIAL ONE (10:31)
[2020-09-25] MEDS ORDERED: LIDOCAINE 2%-EPI 1:100000 20 ML MDV SUBQ ONE (10:45)
[2020-09-25] MEDS ORDERED: BUPIVACAINE 0.25% PF 30 ML VIAL SUBQ ONE (10:46)
[2020-09-25] MEDS ORDERED: LIDOCAINE-MPF 2% 5 ML VIAL ONE (10:49)
[2020-09-25] MEDS ORDERED: PROPOFOL 200 MG/20 ML VIAL IVP ONE (10:49)
[2020-09-25] MEDS ORDERED: DEXAMETHASONE 4 MG/ML VIAL ONE (10:49)
[2020-09-25] MEDS ORDERED: ONDANSETRON 4 MG/2 ML VIAL ONE (10:49)
[2020-09-25] MEDS ORDERED: ePHEDrine 50 MG/ML VIAL IVP ONE (10:58)
[2020-09-25] MEDS ORDERED: ONDANSETRON ODT 4 MG TABLET TL PRN (11:33)
[2020-09-25] MEDS ORDERED: HYDROmorphone 2 MG TABLET PO PRN (11:33)
--- NOTE | 2020-09-25 11:36 | ANESTHESIA POST OP EVALUATION ---
Anesthesia Post Eval - Post Anesthesia Eval Vitals: Last Vital Signs Temp 36.3 C L 09/25/20 11:30 Pulse 78 09/25/20 11:30 Resp 11 L 09/25/20 11:30 BP 117/73 09/25/20 11:30 Pulse Ox 100 09/25/20 11:30 CV Function Including HR & BP: positive: Stable Pain Control: positive: Satisfactory Nausea & Vomiting: positive: Negative Mental Status: positive: Baseline Respiratory Status: Airway Patent Hydration Status: Satisfactory Anesthesia Complications: positive: None
[2020-09-25 13:35] VITALS: BP 122/75
== END 2020-09-25 08:12 | disposition home or self-care (01) ==
LOC: SDS 08:11
PROVIDERS: ATTEND Obstetrics & Gynecology
PROC: 0UDB7ZZ Extraction of Endometrium, Via Natural or Artificial Opening (ICD-10-PCS; 2020-09-25)
PROC: 0UB98ZZ Excision of Uterus, Via Natural or Artificial Opening Endoscopic (ICD-10-PCS; principal; 2020-09-25 09:15)
DX: N84.1 Polyp of cervix uteri (principal); R93.89 Abnormal findings on diagnostic imaging of other specified body structures; N92.1 Excessive and frequent menstruation with irregular cycle; D25.1 Intramural leiomyoma of uterus; Z87.891 Personal history of nicotine dependence; E66.3 Overweight; Z68.29 Body mass index [BMI] 29.0-29.9, adult; E06.3 Autoimmune thyroiditis; R53.83 Other fatigue
CPT/HCPCS: 36415; 58558; 81025; 82306; A9270; J0131; J3490; J7120

== ENCOUNTER 2020-11-04 17:27 | Outpatient (CLI) | payer BC | END 2020-11-04 17:28 | disposition home or self-care (01) | LOC: LAB 17:27 | PROVIDERS: ATTEND Surgery | DX: Z20.822 Contact with and (suspected) exposure to COVID-19 (principal) ==

== ENCOUNTER 2021-03-25 09:32 | Outpatient (CLI) | payer BC ==
[2021-03-25 10:06] LABS: BASOPHILS # (AUTO) 0.1 10^3/uL (0.0-0.1); EOSINOPHILS # (AUTO) 0.2 10^3/uL (0.0-0.7); EOSINOPHILS % (AUTO) 3.2 %; HCT - HEMATOCRIT 31.6 % (37.0-47.0); HGB - HEMOGLOBIN 9.2 g/dL (12.0-16.0); LYMPHOCYTES # (AUTO) 2.4 10^3/uL (1.5-3.5); LYMPHOCYTES % (AUTO) 33.5 %; MEAN CORPUSCULAR HEMOGLOBIN 21.1 pg (27.0-31.0); MEAN CORPUSCULAR HGB CONC 29.1 g/dL (32.0-36.0); MEAN CORPUSCULAR VOLUME 72.3 fL (81.0-99.0); MEAN PLATELET VOLUME 9.6 fL (7.9-10.8); MONOCYTES # (AUTO) 0.8 10^3/uL (0.0-1.0); MONOCYTES % (AUTO) 11.7 %; NEUTROPHILS # (AUTO) 3.6 10^3/uL (1.5-6.6); NEUTROPHILS % (AUTO) 50.3 %; PLT - PLATELET COUNT 344 10^3/uL (130-450); RED BLOOD COUNT 4.37 10^6/uL (4.20-5.40); RED CELL DISTRIBUTION WIDTH 16.5 % (12.0-15.0); WHITE BLOOD COUNT 7.2 x10^3/uL (4.8-10.8)
[2021-03-25 10:20] LABS: ALBUMIN 3.9 g/dL (3.2-5.5); ALBUMIN/GLOBULIN RATIO 0.9 (1.0-2.2); BILIRUBIN,TOTAL 0.4 mg/dL (0.2-1.0); CREATININE 0.6 mg/dL (0.4-1.0); POTASSIUM 4.2 mmol/L (3.5-5.0); TOTAL PROTEIN 8.1 g/dL (6.7-8.2)
[2021-03-25 10:33] LABS: THYROID STIMULATING HORMONE 1.99 uIU/mL (0.34-5.60)
[2021-03-25 10:35] LABS: FREE T4 (FREE THYROXINE) 0.65 ng/dL (0.58-1.64)
== END 2021-03-25 09:33 | disposition home or self-care (01) ==
LOC: LAB 09:32
PROVIDERS: ATTEND Surgery
DX: R74.8 Abnormal levels of other serum enzymes (principal); E55.9 Vitamin D deficiency, unspecified; D64.9 Anemia, unspecified; E04.2 Nontoxic multinodular goiter
CPT/HCPCS: 36415; 80053; 82306; 82728; 84439; 84443; 85025

== ENCOUNTER 2021-09-05 08:59 | Outpatient (CLI) | payer BC ==
[2021-09-05 09:36] LABS: % IRON SATURATION 19 % (20-50); IRON 100 ug/dL (28-170); TOTAL IRON BINDING CAPACITY 514 ug/dL (250-450); TRANSFERRIN 367 mg/dL (192-382)
[2021-09-05 09:43] LABS: THYROID STIMULATING HORMONE 2.37 uIU/mL (0.34-5.60)
[2021-09-05 09:46] LABS: FREE T4 (FREE THYROXINE) 0.63 ng/dL (0.58-1.64)
[2021-09-05 09:49] LABS: FERRITIN 10.4 ng/mL (11.0-306.8)
== END 2021-09-05 09:00 | disposition home or self-care (01) ==
LOC: LAB 08:59
PROVIDERS: ATTEND Nurse Practitioner Obstetrics & Gynecology
DX: R53.83 Other fatigue (principal)
CPT/HCPCS: 36415; 82652; 82728; 83540; 84439; 84443; 84466

== ENCOUNTER 2021-10-31 10:07 | Outpatient (CLI) | payer BC ==
[2021-10-31 10:24] LABS: HCT - HEMATOCRIT 35.7 % (37.0-47.0); MEAN CORPUSCULAR HEMOGLOBIN 29.9 pg (27.0-31.0); MEAN CORPUSCULAR HGB CONC 33.6 g/dL (32.0-36.0); MEAN CORPUSCULAR VOLUME 88.8 fL (81.0-99.0); MEAN PLATELET VOLUME 9.6 fL (7.9-10.8); RED BLOOD COUNT 4.02 10^6/uL (4.20-5.40); RED CELL DISTRIBUTION WIDTH 14.3 % (12.0-15.0); WHITE BLOOD COUNT 9.8 x10^3/uL (4.8-10.8)
== END 2021-10-31 10:08 | disposition home or self-care (01) ==
LOC: LAB 10:07
PROVIDERS: ATTEND Obstetrics & Gynecology
DX: N93.9 Abnormal uterine and vaginal bleeding, unspecified (principal)
CPT/HCPCS: 36415; 85027

== ENCOUNTER 2021-11-13 15:52 | Outpatient (CLI) | payer BC ==
--- NOTE | 2021-11-14 09:48 | Mammography Report ---
BILATERAL DIGITAL SCREENING MAMMOGRAM 3D/2D: 11/13/2021 CLINICAL: Routine screening. Comparison is made to exam dated: 05/02/2020 mammogram - [facility]. The tissue o f both breasts is heterogeneously dense. This may lower the sensitivity of mammography. No significant masses, calcifications, or other findings are seen in either breast. There has been no significant interval change. IMPRESSION: NEGATIVE There is no mammographic evidence of malignancy. A 1 year screening mammogram is recommended. This exam was interpreted at Station ID: [id number]. NOTE: For mammograms, a report in lay terms will be sent to the patient. Approximately 15% of breast malignancies will not be visualized mammographically. In the management of a palpable breast mass, a negative mammogram must not discourage biopsy of a clinically suspicious lesion. Electronically Signed By: Efrain Padron M.D. slc/penrad:11/14/2021 08:03:17 ACR BI-RADS Category 1: Negative 3341F PARENCHYMAL PATTERN: (D) - The breast(s) demonstrate(s) heterogeneously dense fibroglandular sumanth maurice. BI-RADS CATEGORY: (1) - 1 RECOMMENDATION: (ANNUAL) - Recommend routine annual screening mammography. [id number] 1 year screening LATERALITY: (B)
== END 2021-11-13 15:53 | disposition home or self-care (01) ==
LOC: DI.N 15:52
PROVIDERS: ATTEND Obstetrics & Gynecology
DX: Z12.31 Encounter for screening mammogram for malignant neoplasm of breast (principal)

== ENCOUNTER 2021-11-26 10:50 | Outpatient (CLI) | payer BC ==
--- NOTE | 2021-11-26 16:04 | Ultrasound Report ---
PROCEDURE: Pelvic w/Transvaginal INDICATIONS: ABN UTERINE BLEEDING TECHNIQUE: Real-time scanning was performed of the pelvic organs, with image documentation. Additional endovagi nal scanning was necessary due to incomplete visualization of the adnexal and endometrial structures by transabdominal scanning. COMPARISON: None. FINDINGS: Limited scanning through the kidneys shows no hydronephrosis. No pathologic free abdominal or pelvic fluid. Uterus: Uterus is enlarged in size at 12.1 x 6.7 x 8.3 cm. The endometrium measures 6.6 mm in comb ined thickness. There is appearance of heterogeneous echogenicity within the endometrium. Uterus is heterogeneous. Within the left anterior intramural region there is an 18 x 15 x 15 mm focus of hetero geneous echogenicity. Similar focus is noted in the same location on the right measuring 19 x 16 x 18 mm. These were not identified on prior exam. There is a focus of the left posterior intramural regio n measuring 23 x 21 x 21 mm previously measuring 23 x 26 x 23 mm. Nabothian cysts are noted. Ovaries: Right ovary measures 2.2 x 1.2 x 1.3 cm, volume 1.8 cc. Left ovary measures 2.4 x 1.3 x 1.4 cm, volume 2.4 cc. IMPRESSION: 1. Heterogeneous foci within the uterus suggestive of fibroids. 2. Areas of heterogeneous echogenicity are noted within the endometrium. This could represent clot. H owever other etiologies such as polyp or potential malignancy cannot be definitively excluded. Six-we ek interval ultrasound follow-up is recommended. Reviewed by: Irina Lanier MD on 11/26/2021 4:02 PM PDT Approved by: Irina Lanier MD on 11/26/2021 4:02 PM PDT Station ID: [id number]
== END 2021-11-26 10:51 | disposition home or self-care (01) ==
LOC: DI 10:50
PROVIDERS: ATTEND Obstetrics & Gynecology
DX: N93.9 Abnormal uterine and vaginal bleeding, unspecified (principal); R93.89 Abnormal findings on diagnostic imaging of other specified body structures

== ENCOUNTER 2021-12-18 08:23 | Outpatient (CLI) | payer BC ==
--- NOTE | 2021-12-18 11:27 | Ultrasound Report ---
PROCEDURE: Abdomen Limited INDICATIONS: GALLBLADDER POLYP, MULTIPLE THYROID NODULES TECHNIQUE: Real-time focused scanning was performed of the abdomen, with image documentation. COMPARISON: 04/14/2020 FINDINGS: Approximately 6 mm gallbladder polyp is unchanged from the prior study. The gallbladder is otherwise normal. Mildly increased hepatic parenchymal echogenicity indicative of hepatic steatosis. Liver is o therwise normal. No intrahepatic or extra hepatic biliary ductal dilatation. Visualized portions of t he pancreas are normal. Right extrarenal pelvis noted. Right kidney otherwise unremarkable. IMPRESSION: Unchanged size of approximately 6 mm gallbladder polyp. Continued annual surveillance recommended to document long-term stability. Reviewed by: Wayne Nichole MD on 12/18/2021 11:26 AM PDT Approved by: Wayne Nichole MD on 12/18/2021 11:26 AM PDT Station ID: [id number]
--- NOTE | 2021-12-18 16:00 | Ultrasound Report ---
PROCEDURE: Head or Neck Soft Tissue INDICATIONS: GALLBLADDER POLYP, MULTIPLE THYROID NODULES TECHNIQUE: Real-time scanning was performed of the thyroid gland, with image documentation. COMPARISON: 09/03/2020 FINDINGS: Right: Thyroid lobe measures 4.9 x 1.7 x 1.2 cm, and is homogeneous in echotexture. Left: Thyroid lobe measures 5.9 x 2.4 x 1.9 cm, and is homogenous in echotexture. Isthmus: 3 mm thick. Nodule number: One Location: Right lateral midpole Size: 1.3 x 1.1 x 0.9 cm, previously 1.4 x 1.0 x 1.1 cm. Composition: Solid Echogenicity: Isoechoic Shape: wider than tall. Margins: Smooth Echogenic foci: No Total points: 3 ACR TI-RADS category: Mildly suspicious Nodule number: Two Location: Right inferior pole Size: 1.0 x 0.9 x 1.0 cm, previously 1.1 x 1.0 x 0.8 cm. Composition: Solid Echogenicity: Isoechoic Shape: wider than tall. Margins: Smooth Echogenic foci: No Total points: 3 ACR TI-RADS category: Mildly suspicious Nodule number: Three Location: Left inferior pole Size: 3.1 x 3.2 x 3.2 cm, previously 3.8 x 2.7 x 2.7 cm. Composition: Solid Echogenicity: Isoechoic Shape: wider than tall. Margins: Smooth Echogenic foci: No Total points: 3 ACR TI-RADS category: Mildly suspicious Nodule number: Four Location: Left inferior pole medial Size: 1.0 x 1.1 x 0.7 cm, previously 1.1 x 0.9 x 0.8 cm. Composition: Solid Echogenicity: Hyperechoic Shape: wider than tall. Margins: Smooth Echogenic foci: No Total points: 3 ACR TI-RADS category: Mildly suspicious IMPRESSION: 1. Slight interval increase in size of dominant left inferior pole thyroid nodule, although mildly wray spicious characteristics, FNA is recommended given size if not previously performed. 2. Other mildly suspicious nodules in the thyroid are stable. ACR TI-RADS definitions and recommendations: TI-RADS 1 (benign): 0 points. FNA not needed. TI-RADS 2 (not suspicious): 2 points. FNA not needed. TI-RADS 3 (mildly suspicious): 3 points. "FNA if 2.5 cm or larger, follow up if 1.5 cm or larger (at 1, 3, and 5 years). TI-RADS 4 (moderately suspicious): 4-6 points. "FNA if 1.5 cm or larger, follow up if 1 cm or larger (at 1, 2, 3, and 5 years). TI-RADS 5 (highly suspicious): 7 points or more. "FNA if 1 cm or larger, follow up if 0.5 cm or larger (every year for 5 years). Reviewed by: Gail Barrios MD on 12/18/2021 3:58 PM PDT Approved by: Gail Barrios MD on 12/18/2021 3:58 PM PDT Station ID: [id number]
== END 2021-12-18 08:24 | disposition home or self-care (01) ==
LOC: DI 08:23
PROVIDERS: ATTEND Family Medicine
DX: K82.4 Cholesterolosis of gallbladder (principal); E04.2 Nontoxic multinodular goiter; J06.9 Acute upper respiratory infection, unspecified; N93.9 Abnormal uterine and vaginal bleeding, unspecified; E55.9 Vitamin D deficiency, unspecified; K21.9 Gastro-esophageal reflux disease without esophagitis; D64.9 Anemia, unspecified; R53.83 Other fatigue
CPT/HCPCS: 36415; 80053; 80061; 83001; 83002; 83721; 84439; 84443; 84481; 85025

== ENCOUNTER 2021-12-18 10:06 | Outpatient (CLI) | payer BC ==
[2021-12-18 10:21] LABS: BASOPHILS # (AUTO) 0.1 10^3/uL (0.0-0.1); BASOPHILS % (AUTO) 0.8 %; EOSINOPHILS # (AUTO) 0.3 10^3/uL (0.0-0.7); HCT - HEMATOCRIT 38.1 % (37.0-47.0); HGB - HEMOGLOBIN 12.1 g/dL (12.0-16.0); LYMPHOCYTES # (AUTO) 2.1 10^3/uL (1.5-3.5); LYMPHOCYTES % (AUTO) 24.7 %; MEAN CORPUSCULAR HEMOGLOBIN 27.6 pg (27.0-31.0); MEAN CORPUSCULAR HGB CONC 31.8 g/dL (32.0-36.0); MEAN CORPUSCULAR VOLUME 86.8 fL (81.0-99.0); MEAN PLATELET VOLUME 9.2 fL (7.9-10.8); MONOCYTES # (AUTO) 0.8 10^3/uL (0.0-1.0); MONOCYTES % (AUTO) 9.3 %; NEUTROPHILS # (AUTO) 5.4 10^3/uL (1.5-6.6); NEUTROPHILS % (AUTO) 61.7 %; PLT - PLATELET COUNT 347 10^3/uL (130-450); RED BLOOD COUNT 4.39 10^6/uL (4.20-5.40); RED CELL DISTRIBUTION WIDTH 12.8 % (12.0-15.0); WHITE BLOOD COUNT 8.7 x10^3/uL (4.8-10.8)
[2021-12-18 10:41] LABS: ALBUMIN 3.5 g/dL (3.2-5.5); ALBUMIN/GLOBULIN RATIO 0.7 (1.0-2.2); ALKALINE PHOSPHATASE 89 IU/L (42-121); ALT ALANINE AMINOTRANSFERASE 57 IU/L (10-60); AST ASPARTATE AMINOTRANSFERASE 41 IU/L (10-42); BILIRUBIN,TOTAL 0.4 mg/dL (0.2-1.0); BUN - BLOOD UREA NITROGEN 11 mg/dL (6-20); CALCIUM 8.9 mg/dL (8.5-10.3); CARBON DIOXIDE - CO2 26 mmol/L (21-32); CHLORIDE 103 mmol/L (101-111); CHOL/HDL RATIO 3.9 (<4.4); CHOLESTEROL 250 mg/dL; CREATININE 0.7 mg/dL (0.4-1.0); GFR - MDRD 91 (>89); GLUCOSE 99 mg/dL (70-100); HDL CHOLESTEROL 64 mg/dL; LDL CHOLESTEROL,CALCULATED 147 mg/dL; LDL/HDL RATIO 2.3 (<4.4); POTASSIUM 4.4 mmol/L (3.5-5.0); SODIUM 135 mmol/L (135-145); TOTAL PROTEIN 8.4 g/dL (6.7-8.2); TRIGLYCERIDES 196 mg/dL; VLDL CHOLESTEROL 39 mg/dL
[2021-12-18 10:53] LABS: THYROID STIMULATING HORMONE 2.67 uIU/mL (0.34-5.60)
[2021-12-18 10:55] LABS: FREE T3 3.5 pg/mL (2.5-3.9)
[2021-12-18 10:58] LABS: FREE T4 (FREE THYROXINE) 0.5 ng/dL (0.58-1.64)
[2021-12-18 11:21] LABS: FOLLICLE STIMULATING HORMONE 1.34 mIU/mL
[2021-12-18 11:22] LABS: LUTEINIZING HORMONE 0.65 mIU/mL
== END 2021-12-18 10:07 | disposition home or self-care (01) ==
LOC: LAB 10:06
PROVIDERS: ATTEND Family Medicine
DX: J06.9 Acute upper respiratory infection, unspecified (principal); N93.9 Abnormal uterine and vaginal bleeding, unspecified; E55.9 Vitamin D deficiency, unspecified; E04.2 Nontoxic multinodular goiter; K21.9 Gastro-esophageal reflux disease without esophagitis; D64.9 Anemia, unspecified; R53.83 Other fatigue
CPT/HCPCS: 36415; 80053; 80061; 83001; 83002; 83721; 84439; 84443; 84481; 85025

== ENCOUNTER 2022-09-02 15:58 | Outpatient (CLI) | payer BC ==
--- NOTE | 2022-09-02 17:27 | Ultrasound Report ---
PROCEDURE: Pelvic w/Transvaginal INDICATIONS: IRREGULAR PERIODS TECHNIQUE: Real-time scanning was performed of the pelvic organs, with image documentation. Additional endovagi nal scanning was necessary due to incomplete visualization of the adnexal and endometrial structures by transabdominal scanning. COMPARISON: None. FINDINGS: Uterus: Uterus is anteverted and normal in size at 11.2 x 6.1 x 7.4 cm. The myometrium is homogeneo us. The endometrium measures 4.9 mm in combined thickness. There is a midline anterior submucosal f ibroid which measures 2.8 x 2.0 x 2.7 cm. There is a left anterior intramural fibroid which measures 2.5 x 2.2 x 2.3 cm (previously measured 1.9 x 1.6 x 1.8 cm on the comparison ultrasound dated 11/27/19 22). There is a midline posterior intramural fibroid which measures 2.2 x 1.7 x 3.1 cm (previously me asured 1.8 x 1.8 x 1.9 cm). Ovaries: The right ovary measures 3.2 x 1.2 x 1.8 cm, with a calculated ovarian volume of 2.6 cc. T he left ovary measures 2.2 x 1.7 x 2.3 cm, with a calculated ovarian volume of 4.5 cc. The ovaries h ave a normal sonographic appearance. Less than 12 follicles can be seen in each ovary. No adnexal m asses are seen. Other: No pathologic free abdominal or pelvic fluid. IMPRESSION: 1. Fibroid uterus with increasing size of the fibroids when compared with the ultrasound dated 022. If further characterization is warranted, gynecological protocol MRI is recommended. Reviewed by: Maida Gagnon MD on 09/02/2022 5:26 PM PST Approved by: Maida Gagnon MD on 09/02/2022 5:26 PM PST Station ID: [id number]
== END 2022-09-02 15:59 | disposition home or self-care (01) ==
LOC: DI 15:58
PROVIDERS: ATTEND Obstetrics & Gynecology
DX: N92.6 Irregular menstruation, unspecified (principal); D25.1 Intramural leiomyoma of uterus

== ENCOUNTER 2022-12-31 08:34 | Outpatient (CLI) | payer BC ==
[2022-12-31 08:51] LABS: BASOPHILS # (AUTO) 0.1 10^3/uL (0.0-0.1); BASOPHILS % (AUTO) 0.5 %; EOSINOPHILS # (AUTO) 0.3 10^3/uL (0.0-0.7); EOSINOPHILS % (AUTO) 3.1 %; HCT - HEMATOCRIT 34.4 % (37.0-47.0); HGB - HEMOGLOBIN 10.3 g/dL (12.0-16.0); LYMPHOCYTES # (AUTO) 2.7 10^3/uL (1.5-3.5); LYMPHOCYTES % (AUTO) 27.5 %; MEAN CORPUSCULAR HEMOGLOBIN 20.9 pg (27.0-31.0); MEAN CORPUSCULAR HGB CONC 29.9 g/dL (32.0-36.0); MEAN CORPUSCULAR VOLUME 69.8 fL (81.0-99.0); MEAN PLATELET VOLUME 9.3 fL (7.9-10.8); MONOCYTES # (AUTO) 1.2 10^3/uL (0.0-1.0); MONOCYTES % (AUTO) 12.1 %; NEUTROPHILS # (AUTO) 5.4 10^3/uL (1.5-6.6); NEUTROPHILS % (AUTO) 56.2 %; PLT - PLATELET COUNT 419 10^3/uL (130-450); RED BLOOD COUNT 4.93 10^6/uL (4.20-5.40); RED CELL DISTRIBUTION WIDTH 18.9 % (12.0-15.0); WHITE BLOOD COUNT 9.7 x10^3/uL (4.8-10.8)
[2022-12-31 09:01] LABS: SLIDE REVIEW? Indicated
[2022-12-31 09:09] LABS: ALBUMIN 3.2 g/dL (3.2-5.5); ALBUMIN/GLOBULIN RATIO 0.7 (1.0-2.2); ALKALINE PHOSPHATASE 101 IU/L (42-121); ALT ALANINE AMINOTRANSFERASE 64 IU/L (10-60); AST ASPARTATE AMINOTRANSFERASE 38 IU/L (10-42); BILIRUBIN,TOTAL 0.3 mg/dL (0.2-1.0); BUN - BLOOD UREA NITROGEN 13 mg/dL (6-20); CALCIUM 8.4 mg/dL (8.5-10.3); CARBON DIOXIDE - CO2 25 mmol/L (21-32); CHLORIDE 105 mmol/L (101-111); CHOL/HDL RATIO 3.8 (<4.4); CHOLESTEROL 228 mg/dL; CREATININE 0.7 mg/dL (0.4-1.0); GFR - MDRD 90 (>89); GLUCOSE 103 mg/dL (70-100); HDL CHOLESTEROL 60 mg/dL; LDL CHOLESTEROL,CALCULATED 122 mg/dL; SODIUM 137 mmol/L (135-145); TOTAL PROTEIN 7.9 g/dL (6.7-8.2); TRIGLYCERIDES 232 mg/dL; VLDL CHOLESTEROL 46 mg/dL
[2022-12-31 09:22] LABS: THYROID STIMULATING HORMONE 2.07 uIU/mL (0.34-5.60)
[2022-12-31 09:23] LABS: PLATELET ESTIMATE, MANUAL NORMAL (130-450,000) (NORMAL); PLATELET MORPHOLOGY NORMAL APPEARANCE (NORMAL); WBC MORPHOLOGY (MULTIPLE) NORMAL APPEARANCE (NORMAL)
[2022-12-31 09:50] LABS: FOLLICLE STIMULATING HORMONE 5.87 mIU/mL
[2022-12-31 09:51] LABS: LUTEINIZING HORMONE 5.29 mIU/mL
== END 2022-12-31 08:35 | disposition home or self-care (01) ==
LOC: LAB 08:34
PROVIDERS: ATTEND Family Medicine
DX: D64.9 Anemia, unspecified (principal); R53.83 Other fatigue; E04.2 Nontoxic multinodular goiter; K21.9 Gastro-esophageal reflux disease without esophagitis
CPT/HCPCS: 36415; 80053; 80061; 83001; 83002; 83721; 84443; 85025

== ENCOUNTER 2023-01-12 07:03 | Outpatient (CLI) | payer BC ==
--- NOTE | 2023-01-12 10:41 | Ultrasound Report ---
PROCEDURE: Abdomen Limited INDICATIONS: GALLBLADDER POLYP TECHNIQUE: Real-time focused scanning was performed of the abdomen, with image documentation. COMPARISONS: None. FINDINGS: Liver measures 17 cm. Heterogeneous and slightly increased hepatic echotexture. Slightly echogenic re gion in the mid to superior liver measures 2.2 x 2.6 cm No focal tenderness. Polyp again seen measuring 7 x 5 mm. CBD measures 3 mm. Pancreas is within normal limits. Right kidney measures 11 cm. Right pelviectasis again seen. No abdominal aortic aneurysm. Common iliac arteries are within normal limits. IVC is patent. IMPRESSION: Low risk appearing gallbladder polyp with at least one year stability. Per latest guidelines, this do es not require any further dedicated follow-up. Slightly increased hepatic echotexture, most commonly seen with steatosis. More focal echogenic area appears geographic above the main portal vein, probably focal fatty infiltration. If the patient has risk factors or personal history of malignancy, this could be confirmed with multi phase cross-sectional imaging. Reviewed by: Patrice Lee MD on 01/12/2023 10:40 AM PDT Approved by: Patrice Lee MD on 01/12/2023 10:40 AM PDT Station ID: [id number]
== END 2023-01-12 07:04 | disposition home or self-care (01) ==
LOC: DI 07:03
PROVIDERS: ATTEND Family Medicine
DX: K82.4 Cholesterolosis of gallbladder (principal)